=== PATIENT | male | born 1935 | race Caucasian/White ===

== ENCOUNTER → 2017-04-17 | Outpatient (CLI) | payer OTHER ==
[2015-03-03 10:24] VITALS: BP 122/62
[~2017-04-17] MED LIST: ASCO500T2 PO; ASPI-482 PO; CARV3.12 PO; FERR325T58 PO; HYDR-2666 PO; LISI10TA2 PO; OXYC10TA32 PO; PANT40TA5 PO; SERT50TA PO; SIMV40TA3 PO; TAMS0.4C97 PO
--- NOTE | 2017-04-17 10:43 | KCIC ---
Exam: Renal ultrasound Indication: Benign prostatic hypertrophy Technique: Multiple realtime grayscale sonographic images were obtained over the abdomen. Static images were submitted for interpretation. Findings: The Right kidney is normal in size measuring 13.3 x 6.6 x 5.6cm. There is no evidence for mass, nephrolithiasis, or hydronephrosis. The Left kidney is normal in size measuring 12.5 x 4.6 x 4.8cm. There is no evidence for mass, nephrolithiasis, or hydronephrosis. The abdominal aorta is normal in caliber. The IVC is patent. No ascites is identified The urinary bladder is normal . The prostate gland measures 3.5 x 2.9 x 4.4 cm for a volume of 23 cc. Impression: Normal appearance of the kidneys. Prostate gland measures 3.5 x 2.9 x 4.4 cm for a volume of 23 cc. Electronically signed by: Lenny Diaz MD (04/17/2017 10:40 AM)
== END | disposition home or self-care (01) ==
LOC: KCIC US 09:40
PROVIDERS: ATTEND Nurse Practitioner Occupational Health
DX: N40.0 Benign prostatic hyperplasia without lower urinary tract symptoms (principal)
CPT/HCPCS: 76770